=== PATIENT | male | born 1975 | race Caucasian/White ===

== ENCOUNTER 2021-01-03 04:13 | Outpatient (CLI) | payer OTHER, SELFPAY ==
[2021-01-04 16:07] LABS: Coronavirus Test Green County Not Detected
== END 2021-01-03 04:14 | disposition home or self-care (01) ==
PROVIDERS: Visit Provider Family Medicine
DX: Z20.822 Contact with and (suspected) exposure to COVID-19 (principal)
CPT/HCPCS: 87635